=== PATIENT | female | born 1975 | race Caucasian/White ===

== ENCOUNTER → 2016-07-23 | Outpatient (CLI) | payer BC | LOC: MW.CHFP 15:46 | PROVIDERS: ATTEND Physician Assistant | DX: R10.11 Right upper quadrant pain (principal) | CPT/HCPCS: 36415; 80076 ==

== ENCOUNTER → 2016-08-02 | Outpatient (CLI) | payer BC ==
--- NOTE | 2016-08-06 03:13 | US ---
EXAMINATION: ] Quadrant ultrasound HISTORY: Pain COMPARISON: CT dated 03/14/2014 TECHNIQUE: Grayscale and color Doppler images obtained of the right upper quadrant. FINDINGS: The visualized pancreas appears normal. The liver is normal in contour and echogenicity wi thout a focal hepatic mass. Right kidney measures 10.9 cm sgod-fg-gore without evidence of hydroneph rosis. The common bile duct measures 4 mm. No images of the gallbladder provided, correlate for chol ecystectomy. IMPRESSION: 1. Unremarkable right upper quadrant ultrasound.
== END ==
LOC: MW.US 09:02
PROVIDERS: ATTEND Physician Assistant
DX: R10.11 Right upper quadrant pain (principal)
CPT/HCPCS: 76705; 76705-26

== ENCOUNTER 2016-08-14 18:35 | Emergency (ER) | payer BC ==
--- NOTE | 2016-08-14 18:47 | EDM.PDOC ---
ED HPI Trauma - General Chief Complaint: Upper Extremity Injury/Pain Stated Complaint: HIT RIGHT ARM Time Seen by Provider: 08/14/16 18:45 Source: Reports: Patient History Limitations: Reports: No limitations - History of Present Illness INITIAL COMMENTS - FREE TEXT/NARRATIVE: History of present illness: [41-year-old female presents with complaints of pain to right forearm. Patient indicates that she was ambulating and tripped falling forward and striking her right forearm abruptly on bar height countertop.] Review of systems: As per history of present illness and below otherwise all systems reviewed and negative. Past medical history: As per history of present illness and as reviewed below otherwise noncontributory. Surgical history: As per history of present illness and as reviewed below otherwise noncontributory. Social history: No reported history of drug or alcohol abuse. Family history: As per history of present illness and as reviewed below otherwise noncontributory. Physical exam: HEENT: Atraumatic, normocephalic, pupils reactive, negative for conjunctival pallor or scleral icterus, mucous membranes moist, throat clear, neck supple, nontender, trachea midline. Lungs: Clear to auscultation, breath sounds equal bilaterally, chest nontender. Heart: S1S2, regular, negative for clicks, rubs, or JVD. Abdomen: Soft, nondistended, nontender. Negative for masses or hepatosplenomegaly. Negative for costovertebral tenderness. Pelvis: Stable nontender. Genitourinary: Deferred. Rectal: Deferred. Extremities: Right arm with pain on abduction, as well as wrist movement. Negative for cords or calf pain. Neurovascular unremarkable. Neuro: Awake, alert, oriented. Cranial nerves II through XII unremarkable. Cerebellum unremarkable. Motor and sensory unremarkable throughout. Exam nonfocal. X-ray negative for fracture Diagnostics: [X-ray right forearm] Therapeutics: [] Impression: [Contusion] Plan: [Lubx-ons-paskknv pain medicine followup with primary care] Definitive disposition and diagnosis as appropriate pending reevaluation and review of above. Allergies/ADRs: Allergies codeine Allergy (Verified 08/14/16 18:48) Hives Home Medications: Ambulatory Orders Levothyroxine Sodium [Levothyroxine Sodium] 0.175 mg PO DAILY 12/04/13 [ Confirmed 08/14/16] Pantoprazole Sodium 40 mg PO DAILY 03/24/14 [Confirmed 08/14/16] Past Medical History Psychiatric History: Reports: Anxiety Oncologic (Cancer) History: Reports: Thyroid - Past Surgical History GI Surgical History: Reports: Bariatric procedure Endocrine Surgical History: Reports: Thyroidectomy Social & Family History - Tobacco Use Smoking Status *Q: Former Smoker Years of Tobacco use: 10 Used Tobacco, but Quit: Yes Month Tobacco Last Used: November Second Hand Smoke Exposure: No - Alcohol Use Days Per Week of Alcohol Use: 0 Number of Drinks Per Day: 0 Total Drinks Per Week: 0 - Recreational Drug Use Recreational Drug Use: No Drug Use in Last 12 Months: No Review of Systems - Review of Systems Review Of Systems: See Below (The history of present illness) Trauma Exam - Physical Exam Exam: See Below (See history of present illness) Course - Vital Signs Last Recorded V/S: Last Vital Signs Temp 37.1 C 08/14/16 18:51 Pulse 76 08/14/16 18:51 Resp 18 08/14/16 18:51 BP 132/63 08/14/16 18:51 Pulse Ox 100 08/14/16 18:51 - Orders/Labs/Meds Orders: Active Orders 24 hr Category Date Time Status Forearm 2V Rt [CR] Stat Exams 08/14/16 18:44 Taken Departure - Departure Time of Disposition: 19:56 Disposition: Home, Self-Care 01 Condition: good Clinical Impression: Right forearm pain Forms: ED Department Discharge Additional Instructions: The following information is given to patients seen in the emergency department who are being discharged to home. This information is to outline your options for follow-up care. We provide all patients seen in our emergency department with a follow-up referral. The need for follow-up, as well as the timing and circumstances, are variable depending upon the specifics of your emergency department visit. If you don't have a primary care physician on staff, we will provide you with a referral. We always advise you to contact your personal physician following an emergency department visit to inform them of the circumstance of the visit and for follow-up with them and/or the need for any referrals to a consulting specialist. The emergency department will also refer you to a specialist when appropriate. This referral assures that you have the opportunity for follow-up care with a specialist. All of these measure are taken in an effort to provide you with optimal care, which includes your follow-up. Under all circumstances we always encourage you to contact your private physician who remains a resource for coordinating your care. When calling for follow-up care, please make the office aware that this follow-up is from your recent emergency room visit. If for any reason you are refused follow-up, please contact the [facility] Emergency Department at and asked to speak to the emergency department charge nurse. Take jhvt-sqo-dppchqs pain medicine such as 800 mg of ibuprofen every 8 hours as needed for pain Alternate ice and heat for no more than 20 minutes at time Followup the primary care 1-2 days Return to ED as needed as discussed - My Orders Last 24 Hours: My Active Orders 08/14/16 18:44 Forearm 2V Rt [CR] Stat - Assessment/Plan Last 24 Hours: My Active Orders 08/14/16 18:44 Forearm 2V Rt [CR] Stat
[2016-08-14 20:27] VITALS: BP 112/58
--- NOTE | 2016-08-15 15:16 | CR ---
EXAM DATE: 08/14/16 PATIENT'S AGE: 41 Patient: AVEL COTO Facility: [place], [place] Site Site : 1975 Study: XRay Extremity FOREARM [id number]/29/2017 7:08:25 PM Ordering Physician: CECIL Final Report: INDICATION: INJURY, PAIN TECHNIQUE: Two views of the right forearm COMPARISON: None FINDINGS: Bones: No fractures or bone lesions. Joint spaces: Unremarkable. Soft tissues: Unremarkable. IMPRESSION: No acute bony abnormality. Dictated by Addy Varghese MD @ 08/14/2016 7:36:01 PM Dictated by: Addy Varghese MD @ 08/14/2016 19:36:07 (Electronic Signature) Report Signed by Proxy and Original Signed Document filed in the Medical Record. [email or web address]
== END 2016-08-14 20:25 | disposition home or self-care (01) ==
LOC: MW.ED 18:35
DX: S50.11XA Contusion of right forearm, initial encounter (principal); Z87.891 Personal history of nicotine dependence; Z88.5 Allergy status to narcotic agent; Z79.899 Other long term (current) drug therapy; F41.9 Anxiety disorder, unspecified; E89.0 Postprocedural hypothyroidism; Z98.84 Bariatric surgery status; W01.198A Fall on same level from slipping, tripping and stumbling with subsequent striking against other object, initial encounter
CPT/HCPCS: 73090-26-RT; 73090-RT; 99283

== ENCOUNTER 2017-03-07 07:14 | Day surgery (SDC) | payer BC ==
[~2017-03-07 07:14] MED LIST: Lactated Ringers 1,000 ML IV SCH
[2017-03-07] MEDS ORDERED: Lidocaine 2% 5 ML SDV ONE (07:31)
[2017-03-07] MEDS ORDERED: Propofol 200 MG/20 ML SDV ONE ×4 (07:31→09:39)
--- NOTE | 2017-03-07 08:14 | PCM.PREANE ---
Preanesthetic Assessment - Anesthesia/Transfusion/Family Hx Anesthesia History: Prior Anesthesia Without Reaction Other Type of Anesthesia Reaction Comment: DENIES ANY PROBLEMS WITH ANESTHESIA Family History of Anesthesia Reaction: No Transfusion History: No Prior Transfusion(s) Intubation History: Unknown - Review of Systems General: No Symptoms Pulmonary: No Symptoms Cardiovascular: No Symptoms Gastrointestinal: No Symptoms, Other (anemia of anknown origin) Neurological: No Symptoms Other: Reports: None - Physical Assessment O2 Sat by Pulse Oximetry: 100 Respiratory Rate: 16 Vital Signs: Last Vital Signs Temp 36.8 C 03/07/17 07:53 Pulse 68 03/07/17 07:53 Resp 16 03/07/17 07:53 BP 110/65 03/07/17 07:53 Pulse Ox 100 03/07/17 07:53 Height: 1.73 m Weight: 86.636 kg ASA Class: 2 Mental Status: Alert & Oriented x3 Airway Class: Mallampati = 2 Dentition: Reports: Normal Dentition, Surry(s) (upper and lower on back side) Thyro-Mental Finger Breadths: 3 Mouth Opening Finger Breadths: 3 ROM/Head Extension: Full Lungs: Clear to Auscultation, Normal Respiratory Effort Cardiovascular: Regular Rate, Regular Rhythm - Lab Values: Laboratory Last Values Urine HCG, Qual NEGATIVE (NEGATIVE) 03/07/17 07:19 - Allergies Allergies/Adverse Reactions: Allergies Allergy/AdvReac Type Severity Reaction Status Date / Time codeine Allergy Hives Verified 08/14/16 18:48 - Blood Blood Available: No - Anesthesia Plan Pre-Op Medication Ordered: None - Acknowledgements Anesthesia Type Planned: MAC Pt an Appropriate Candidate for the Planned Anesthesia: Yes Alternatives and Risks of Anesthesia Discussed w Pt/Guardian: Yes Pt/Guardian Understands and Agrees with Anesthesia Plan: Yes PreAnesthesia Questionnaire HEENT History: Reports: Other (See Below) Other HEENT History: wears glasses Gastrointestinal History: Reports: GERD, Hiatal Hernia 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: Musculoskeletal History: Reports: Fracture Other Musculoskeletal History: hx fx wrist Neurological History: Reports: Migraines Psychiatric History: Reports: Anxiety Endocrine/Metabolic History: Reports: Hypothyroidism, Other (See Below) (h/o pituitary tumor, small asymptomatic- no treatment so far (found while looking for cause of chronic headaches) Hematologic History: Reports: Anemia Oncologic (Cancer) History: Reports: Thyroid (h/o thyroid cancer) - Past Surgical History Head Surgeries/Procedures: Reports: None GI Surgical History: Reports: Bariatric Procedure, Cholecystectomy, Colonoscopy Other GI Surgeries/Procedures: hiatal hernia repair with gastric sleeve Endocrine Surgical History: Reports: Thyroidectomy - SUBSTANCE USE Smoking Status *Q: Former Smoker Second Hand Smoke Exposure: No Days Per Week of Alcohol Use: 0 Number of Drinks Per Day: 0 Total Drinks Per Week: 0 Recreational Drug Use History: No - HOME MEDS Home Medications: Home Meds Levothyroxine Sodium [Levothyroxine Sodium] 175 mcg PO ASDIRECTED 12/04/13 [ History] Pantoprazole Sodium 40 mg PO DAILY 03/24/14 [History] Acetaminophen [Tylenol Extra Strength] 1 - 2 tab PO ASDIRECTED PRN 03/04/17 [ History] Ascorbic Acid [Vitamin C] 100 mg PO DAILY 03/04/17 [History] Cholecalciferol (Vitamin D3) [Vitamin D3] 10,000 units PO WEEKLY 03/04/17 [ History] Cyanocobalamin (Vitamin B-12) [Vitamin B-12] 1,000 mcg PO DAILY 03/04/17 [ History] FA/Lycopene/Lut/MV,Ca,Iron,Min [Centrum] 1 tab CHEW DAILY 03/04/17 [History] Ferrous Sulfate [Iron] 325 mg PO BID 03/04/17 [History] Wheat Dextrin [Benefiber] 1 dose PO ASDIRECTED PRN 03/04/17 [History] - CURRENT (IN HOUSE) MEDS Current Meds: Current Medications Lactated Ringer's (Ringers, Lactated) 1,000 mls @ 125 mls/hr IV ASDIRECTED REED Last Admin: 03/07/17 07:55 Dose: 125 mls/hr Discontinued Medications Lidocaine (Xylocaine-Mpf 2%) Confirm Administered Dose 5 ml .ROUTE .STK-MED ONE Stop: 03/07/17 07:32 Propofol (Diprivan 20 Ml) Confirm Administered Dose 400 mg .ROUTE .STK-MED ONE Stop: 03/07/17 07:32
[2017-03-07] MEDS ORDERED: Benzocaine/Cetylpyridinium/Menthol Lozenge MUCMEM PRN (09:50)
--- NOTE | 2017-03-07 09:55 | PCM.OPNOTE ---
- General Post-Op/Procedure Note Date of Surgery/Procedure: 03/07/17 Operative Procedure(s): Esophagogastroduodenoscopy with biopsy. Colonoscopy with snare, rectosigmoid polypectomy and cold rectal polypectomy. Pre Op Diagnosis: Iron deficiency anemia. Post-Op Diagnosis: Moderate acute gastritis. Rectosigmoid polyp. Rectal polyp. Anesthesia Technique: MAC (ASA II) Primary Surgeon: Kwesi Wagner Logging Rafter Laborer: Jose Pierce Condition: Good Free Text/Narrative:: Dictation [id number] CPT CODE [id number]
--- NOTE | 2017-03-07 10:36 | OR ---
SURGEON: Kwesi Wagner M.D. DATE OF PROCEDURE: 03/07/2017 OPERATION PERFORMED: Esophagogastroduodenoscopy with biopsy. BLOW PIT HELPER: Dr. Pierce. ANESTHESIA: MAC. ASA CLASSIFICATION: II. PREOPERATIVE DIAGNOSIS: Iron-deficiency anemia, previous history of bariatric surgery. POSTOPERATIVE DIAGNOSIS: Moderate acute gastritis. DESCRIPTION OF PROCEDURE: The patient was taken to the endoscopy room, positioned on the endoscopy table in the supine position. Time-out was called for appropriate identification of the patient and procedure. Monitored anesthesia care was provided. The bite block was placed between the patient's teeth. The gastroscope was inserted through the bite block and advanced without difficulty through the esophagus and stomach into the duodenum where examination was carried out in a retrograde fashion. Duodenum shows no acute inflammatory changes. The stomach does show ksqd-gv-rhwulynz gastritis. Antral biopsies were obtained to look for the presence of Helicobacter pylori. The gastroscope was retroflexed to visualize the proximal stomach. No proximal lesions were identified. Specifically, no ulcers or polyps. The gastroscope was then straightened and slowly withdrawn. The GE junction was well defined and shows no acute inflammatory changes. The vocal cords were briefly visualized and showed no acute abnormalities. The gastroscope was then removed with the patient having tolerated this portion of the procedure well. Following colonoscopy, she was taken to recovery room in stable condition. GEORGE MATTHEWS /[id number]
--- NOTE | 2017-03-07 10:42 | OR ---
SURGEON: Kwesi Wagner M.D. DATE OF PROCEDURE: 03/07/2017 OPERATION PERFORMED: Colonoscopy with snare rectosigmoid polypectomy and cold rectal polypectomy. RECRUITING COORDINATOR: Dr. Pierce. ANESTHESIA: MAC. ASA CLASSIFICATION: II. PREOPERATIVE DIAGNOSIS: New onset iron-deficiency anemia. POSTOPERATIVE DIAGNOSIS: Colon polyps x2, one in the rectosigmoid and one in the rectum. DESCRIPTION OF PROCEDURE: With the patient having completed esophagogastroduodenoscopy, she was now positioned in the left lateral decubitus position. The colonoscope was inserted into the rectum and advanced with moderate difficulty to the cecum where the colonoscope was retroflexed to visualize the ascending colon from below. The colonoscope was then straightened and slowly withdrawn. The cecum, ascending colon, hepatic flexure, transverse colon, splenic flexure, descending colon, and sigmoid showed no tumors, polyps, diverticula, or angiodysplastic changes. One polyp was encountered at the rectosigmoid junction, removed with a combination of the snare electrocautery and cold biopsy forceps. A second polyp was encountered in the proximal rectum and removed with the cold biopsy forceps. This was sent for separate histologic analysis. The colonoscope was withdrawn to the distal rectum and retroflexed to visualize the anal orifice from above. No tumors or polyps were seen and there were no acute hemorrhoidal changes. The colonoscope was then straightened, the rectum aspirated, and the colonoscope removed. The patient tolerated the procedure well and was taken to recovery room in stable condition. GEORGE / CASSIE /[id number]
[2017-03-07 14:24] VITALS: BP 116/44
== END 2017-03-07 10:30 | disposition home or self-care (01) ==
LOC: MW.SDS 07:14
PROVIDERS: ATTEND Surgery
DX: K29.50 Unspecified chronic gastritis without bleeding (principal); D12.7 Benign neoplasm of rectosigmoid junction; D12.8 Benign neoplasm of rectum; D50.9 Iron deficiency anemia, unspecified; K21.9 Gastro-esophageal reflux disease without esophagitis; E89.0 Postprocedural hypothyroidism; G43.909 Migraine, unspecified, not intractable, without status migrainosus; Z85.850 Personal history of malignant neoplasm of thyroid; Z87.891 Personal history of nicotine dependence; Z88.5 Allergy status to narcotic agent; Z79.51 Long term (current) use of inhaled steroids; Z79.899 Other long term (current) drug therapy; Z98.84 Bariatric surgery status; Z98.890 Other specified postprocedural states
CPT/HCPCS: 43239; 45380; 45385; 81025; 88305; 88312; J7120; 00810; J2704

== ENCOUNTER 2017-03-11 06:26 | Observation (INO) | payer BC ==
[2017-03-10 09:18] LABS: CHLORIDE,CL 111 mmol/L (98-110); SODIUM,NA 142 mmol/L (136-146)
[~2017-03-11 06:26] MED LIST changes: -Lactated Ringers 1,000 ML IV SCH; +Sodium Chloride 0.9% 10 ML Syringe FLUSH PRN; +Sodium Chloride 0.9% 2.5 ML Syringe FLUSH PRN; +ceFAZolin 2 GM in Premix Bag 1 BAG IV ONE
[2017-03-11] MEDS: Lactated Ringers 1,000 ML IV SCH ×2 (06:45→13:13)
--- NOTE | 2017-03-11 06:59 | PCM.PREANE ---
Preanesthetic Assessment - Anesthesia/Transfusion/Family Hx Anesthesia History: Prior Anesthesia Without Reaction Other Type of Anesthesia Reaction Comment: DENIES ANY PROBLEMS WITH ANESTHESIA Family History of Anesthesia Reaction: No Transfusion History: No Prior Transfusion(s) Intubation History: Unknown - Review of Systems General: No Symptoms Pulmonary: No Symptoms Cardiovascular: No Symptoms Gastrointestinal: No Symptoms Neurological: No Symptoms Other: Reports: None - Physical Assessment Height: 1.73 m Weight: 86.636 kg ASA Class: 2 Mental Status: Alert & Oriented x3 Airway Class: Mallampati = 2 Dentition: Reports: Normal Dentition Thyro-Mental Finger Breadths: 3 Mouth Opening Finger Breadths: 3 ROM/Head Extension: Full Lungs: Clear to Auscultation, Normal Respiratory Effort Cardiovascular: Regular Rate, Regular Rhythm - Lab Values: Laboratory Last Values WBC 5.67 K/uL (4.0-11.0) 03/10/17 08:42 RBC 4.82 M/uL (4.30-5.90) 03/10/17 08:42 Hgb 12.6 g/dL (12.0-16.0) 03/10/17 08:42 Hct 40.0 % (36.0-46.0) 03/10/17 08:42 MCV 83.0 fL (80.0-98.0) 03/10/17 08:42 MCH 26.1 pg (27.0-32.0) L 03/10/17 08:42 MCHC 31.5 g/dL (31.0-37.0) 03/10/17 08:42 Plt Count 163 K/uL (150-400) 03/10/17 08:42 MPV 9.30 fL (7.40-12.00) 03/10/17 08:42 Nucleated RBC % 0.0 /100WBC 03/10/17 08:42 Nucleated RBCs # 0 K/uL 03/10/17 08:42 Sodium 142 mmol/L (136-146) 03/10/17 08:42 Potassium 3.8 mmol/L (3.5-5.1) 03/10/17 08:42 Chloride 111 mmol/L (98-110) H 03/10/17 08:42 Carbon Dioxide 27 mmol/L (21-31) 03/10/17 08:42 BUN 17 mg/dL (6.0-23.0) 03/10/17 08:42 Creatinine 0.7 mg/dL (0.6-1.5) 03/10/17 08:42 Est Cr Clr Drug Dosing 105.61 mL/min 03/10/17 08:42 Estimated GFR (MDRD) > 60.0 ml/min 03/10/17 08:42 Glucose 84 mg/dL (60-110) 03/10/17 08:42 Calcium 8.7 mg/dL (8.8-10.8) L 03/10/17 08:42 HCG, Quant < 1.2 mIU/mL 03/10/17 08:42 Blood Type O POSITIVE 03/10/17 08:42 Antibody Screen NEGATIVE 03/10/17 08:42 - Allergies Allergies/Adverse Reactions: Allergies Allergy/AdvReac Type Severity Reaction Status Date / Time codeine Allergy Hives Verified 08/14/16 18:48 - Blood Blood Available: No - Anesthesia Plan Pre-Op Medication Ordered: None - Acknowledgements Anesthesia Type Planned: General Anesthesia Pt an Appropriate Candidate for the Planned Anesthesia: Yes Alternatives and Risks of Anesthesia Discussed w Pt/Guardian: Yes Pt/Guardian Understands and Agrees with Anesthesia Plan: Yes PreAnesthesia Questionnaire HEENT History: Reports: Other (See Below) Other HEENT History: wears glasses Gastrointestinal History: Reports: GERD, Hiatal Hernia 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: Musculoskeletal History: Reports: Fracture Other Musculoskeletal History: hx fx wrist Neurological History: Reports: Migraines Psychiatric History: Reports: Anxiety Endocrine/Metabolic History: Reports: Hypothyroidism, Other (See Below) (h/o pituitary tumor, small asymptomatic- no treatment so far (found while looking for cause of chronic headaches) Hematologic History: Reports: Anemia Oncologic (Cancer) History: Reports: Thyroid (h/o thyroid cancer) - Past Surgical History Head Surgeries/Procedures: Reports: None GI Surgical History: Reports: Bariatric Procedure, Cholecystectomy, Colonoscopy Other GI Surgeries/Procedures: hiatal hernia repair with gastric sleeve Endocrine Surgical History: Reports: Thyroidectomy - SUBSTANCE USE Smoking Status *Q: Former Smoker Second Hand Smoke Exposure: No Days Per Week of Alcohol Use: 0 Number of Drinks Per Day: 0 Total Drinks Per Week: 0 Recreational Drug Use History: No - HOME MEDS Home Medications: Home Meds Levothyroxine Sodium [Levothyroxine Sodium] 175 mcg PO ASDIRECTED 12/04/13 [ History] Pantoprazole Sodium 40 mg PO DAILY 03/24/14 [History] Acetaminophen [Tylenol Extra Strength] 1 - 2 tab PO ASDIRECTED PRN 03/04/17 [ History] Ascorbic Acid [Vitamin C] 100 mg PO DAILY 03/04/17 [History] Cholecalciferol (Vitamin D3) [Vitamin D3] 10,000 units PO WEEKLY 03/04/17 [ History] Cyanocobalamin (Vitamin B-12) [Vitamin B-12] 1,000 mcg PO DAILY 03/04/17 [ History] FA/Lycopene/Lut/MV,Ca,Iron,Min [Centrum] 1 tab CHEW DAILY 03/04/17 [History] Ferrous Sulfate [Iron] 325 mg PO BID 03/04/17 [History] Wheat Dextrin [Benefiber] 1 dose PO ASDIRECTED PRN 03/04/17 [History] - CURRENT (IN HOUSE) MEDS Current Meds: Current Medications Lactated Ringer's (Ringers, Lactated) 1,000 mls @ 125 mls/hr IV ASDIRECTED REED Last Admin: 03/11/17 06:45 Dose: 125 mls/hr Sodium Chloride (Saline Flush) 10 ml FLUSH ASDIRECTED PRN PRN Reason: Keep Vein Open Sodium Chloride (Saline Flush) 2.5 ml FLUSH ASDIRECTED PRN PRN Reason: Keep Vein Open Discontinued Medications Cefazolin Sodium/Dextrose 2 gm (/ Premix) 50 mls @ 100 mls/hr IV ONETIME ONE Stop: 03/11/17 05:29
[2017-03-11] MEDS ORDERED: Rocuronium 10 MG/ML 10 ML Syringe ONE (07:21)
[2017-03-11] MEDS ORDERED: Midazolam 1 MG/ML 2 ML SDV ONE (07:21)
[2017-03-11] MEDS ORDERED: HYDROmorphone 2 MG/ML Syringe ONE (07:21)
[2017-03-11] MEDS ORDERED: Ondansetron 4 MG/2 ML SDV ONE (07:21)
[2017-03-11] MEDS ORDERED: Propofol 200 MG/20 ML SDV ONE (07:21)
[2017-03-11] MEDS ORDERED: Lidocaine 2% 5 ML SDV ONE (07:21)
[2017-03-11] MEDS ORDERED: fentaNYL 100 MCG/2 ML SDV ONE (07:23)
[2017-03-11] MEDS ORDERED: Fluorescein 5 ML Vial ONE (07:25)
[2017-03-11] MEDS ORDERED: Lidocaine 1% with EPINEPHrine 1:100,000 20 ML MDV ONE (07:51)
[2017-03-11] MEDS ORDERED: Bupivacaine 0.25% 10 ML SDV ONE (07:51)
[2017-03-11] MEDS ORDERED: Neomycin/Polymyxin B Bladder Irrigation 1 ML Amp ONE (07:52)
[2017-03-11] MEDS ORDERED: Scopolamine 1.5 MG Transdermal Patch ONE (07:54)
[2017-03-11] MEDS ORDERED: diphenhydrAMINE 50 MG/ML SDV ONE (07:54)
[2017-03-11] MEDS ORDERED: Dexamethasone 4 MG/ML 5 ML MDV ONE (07:54)
[2017-03-11] MEDS ORDERED: Furosemide 40 MG/4 ML VIAL ONE (09:19)
[2017-03-11] MEDS ORDERED: Octyl 2-Cyanoacrylate 1 Tube ONE (09:29)
[2017-03-11] MEDS ORDERED: Promethazine 25 MG/ML SDV IM PRN (10:02)
[2017-03-11] MEDS ORDERED: Acetaminophen/oxyCODONE 325-5 MG Tab PO PRN (10:02)
[2017-03-11] MEDS ORDERED: Naproxen 500 MG Tab PO PRN (10:02)
[2017-03-11] MEDS ORDERED: Morphine 4 MG/ML Syringe IVPUSH PRN (10:02)
[2017-03-11] MEDS ORDERED: Lactated Ringers 1,000 ML IV SCH (10:15)
--- NOTE | 2017-03-11 10:17 | PCM.OPNOTE ---
- General Post-Op/Procedure Note Date of Surgery/Procedure: 03/11/17 Operative Procedure(s): TVH/TOVT/cystoscopy Findings: 10 week uterus, boggy Normal appearing ovaries Bilateral patent ureters Pre Op Diagnosis: Menorrhagia. Stress urinary incontinence Post-Op Diagnosis: Same Anesthesia Technique: General ET Tube Primary Surgeon: Karolina Yanez Rn Concurrent Review: Valeria Ariza Pathology: uterus Fluid Replacement, Intraop: 3,300 EBL in mLs: 600 Complications: none known Condition: Good Free Text/Narrative:: Dictation [id number]
[2017-03-11] MEDS: fentaNYL 100 MCG/2 ML SDV IVPUSH PRN ×2 (10:30→10:35)
--- NOTE | 2017-03-11 11:28 | PCM.POSTAN ---
POST ANESTHESIA ASSESSMENT - MENTAL STATUS Mental Status: Alert, Oriented - RESPIRATORY Respiratory Status: Respiratory Rate WNL, Airway Patent, O2 Saturation Stable - CARDIOVASCULAR CV Status: Pulse Rate WNL, Blood Pressure Stable - GASTROINTESTINAL GI Status: No Symptoms - PAIN Pain Score: 5 - POST OP HYDRATION Hydration Status: Adequate & Stable - OBSERVATIONS Free Text/Narrative:: no anesthesia problems
[2017-03-11] MEDS: Morphine 2 MG/ML Syringe IVPUSH PRN ×4 (11:33→20:09)
[2017-03-11] MEDS: Ondansetron 4 MG/2 ML SDV IVPUSH PRN (13:07)
[2017-03-11] MEDS: diphenhydrAMINE 25 MG Cap PO PRN ×2 (15:30→21:27)
--- NOTE | 2017-03-11 15:45 | OR ---
SURGEON: Karolina Yanez M.D. DATE OF PROCEDURE: 03/11/2017 PREOPERATIVE DIAGNOSES: 1. Menorrhagia. 2. Stress urinary incontinence. POSTOPERATIVE DIAGNOSES: 1. Menorrhagia. 2. Stress urinary incontinence. PROCEDURE: 1. Total vaginal hysterectomy. 2. Transobturator vaginal taping. Mid urethral sling. 3. Cystoscopy. WARRANTY MANAGER: Valeria Ariza M.D. ESTIMATED BLOOD LOSS: 600 mL. ANESTHESIA: General endotracheal anesthesia. FLUIDS: 3300 mL crystalloid. COMPLICATIONS: None. FINDINGS: Boggy 10-week uterus, bilateral patent ureters. DISPOSITION: The patient to PACU, stable. SPECIMENS: To pathology. PROCEDURE DETAILS: Calista is a 41-year-old female, who has ongoing difficulties with menorrhagia to the point of bleeding to anemia. She would like to proceed with definitive surgical intervention. She also has stress urinary incontinence. Cystometry indicates that she has a normal PVR, leaks with Valsalva, and has urethral hypermobility. She is a candidate for mid urethral sling and would like to proceed in this manner. She is also a reasonable candidate for vaginal hysterectomy. Risks of the procedure have been discussed with her and proper consent was obtained. The patient was taken to the operating room, where she underwent general endotracheal anesthesia. Placed in modified dorsal lithotomy position, was prepped and draped in the usual sterile fashion. SCDs to lower extremities. Rosales to gravity. Received Ancef prophylactically. Time-out was performed. A weighted speculum, anterior Leon, sidewall retractors were gently placed in the vagina. Cervix was grasped with Manuela clamp. Cervix was circumscribed with Bovie cautery, anterior and posteriorly. The overlying mucosa was dissected away from underlying mucosa. Posterior mucosa was tented downward in the midline, entered sharply. Anterior mucosa was further dissected. The patient is extremely vascular; at every point of dissection, there was oozing and a great deal of more than average bleeding. Care was taken at this point to secure the uterosacral ligament on either side with Augustin clamps, transected, and suture ligated with 2-0 Vicryl. I could more easily visualize the anterior peritoneum at this juncture. The peritoneum was tented upward and entered sharply. I was able to palpate the anterior cul-de-sac, it had been entered nicely and anterior [place] was placed to mobilize the bladder away from the operative field. In serial fashion, remainder of the pedicles were able to be secured including the cardinal ligament, the base of broad ligament, medial aspect of broad ligament, upper portion of broad ligament, and the kjdtl-ihaf-nziwgrl pedicle on either side. These were secured with Augustin clamp, transected, and suture ligated. The area of oozing along the right woclv-drcu-orbxfwv pedicle was able to be secured with a tie on a pass. At this juncture, given the amount of vascularity and more than average bleeding with this procedure, it was felt to be prudent to not remove the normal appearing tubes and ovaries, particularly the tubes, as we had discussed, being able to prophylactically if easily accessible and prudent. The ovaries are visualized and appeared normal. The pedicles were now closely inspected. The uterosacral ligament on either side is plicated to the vaginal apex on either side. There was still oozing along the right uterosacral ligament. This was secured with a aschqz-sg-kfksq suture. Hemostasis thereafter was more evident. Pedicles were once again inspected and found to be hemostatic. The cuff was now closed using 0 Vicryl in continuous running locked fashion. The area of oozing right along the mid cuff is plicated with a thehoz-hw-slbfb 2 - 0 Vicryl. Hemostasis was thereafter evident. The cystoscopy is now performed. The balloon is deflated and catheters removed. The cystoscope was introduced and the patient had received IV fluorescein and Lasix. The dome of the bladder was able to be visualized, found to be intact. The trigone was inspected. The right ureteral orifice, followed by the left ureteral orifice was able to be visualized. Fluorescein dyed urine seen streaming from them, helping to ensure ureteral patency. The bladder was now drained. The scope has been removed. Attention was turned to performing the transobturator vaginal taping, using the [employer] system. The patient's adductor longus muscle tendon on either side was able to be palpated directly in line with the clitoral miller. The pubic rami notch was able to be palpated and marked with a marking pen. This region is now infiltrated with a dilute local anesthetic. Please see nurse's notes for total amount dispensed during the procedure. I also provided local behind the pubic bone, directly below the urethral meatus along the anterior vaginal mucosa. This region was also infiltrated with local anesthetic as well as the periurethral spaces. The 11 blade scalpel was used to create groin incisions on either side. Just below the urethral meatus, the anterior vaginal mucosa was grasped and a sagittal anterior vaginal mucosa incision was made with a 15 blade scalpel. The periurethral space on either side were now sharply and bluntly dissected until the medial aspect of the pubic ramus was able to be palpated on either side. Now the adequate dissection had occurred. The Obtryx introducer is placed through the left groin incision. The introducer is now periphery to the transobturator membrane and muscle. Rotated this gently behind the pubic bone, exiting through the vaginal incision. The tape was attached to the introducer and removed through the port of entry. The introducer was now removed from the tape. In a similar fashion, this was performed on the patient's right side. There had been a small hole created in the right side of the vaginal mucosa, this was repaired using 3-0 Vicryl. The index finger was placed in the right periurethral space, it has been dissected. The Obtryx introducer is placed through the right groin incision at a 45-degree angle for the handle, perforating the transobturator membrane and muscle, rotating behind the pubic bone and exiting through the vaginal incision. Tape was attached and removed through the port of entry. The midline was able to be observed with a tag in place. The bladder is now back filled with 240 mL of saline. The Valsalva was performed until the tape tightening reveals no further leakage of the saline that was present. Once the tape was felt to be satisfactorily tightened, the midline tag on the tape was able to be cut and removed. The overlying sheath is now removed from the underlying mesh on either side, with gently tenting the tape downward in the midline. The edges of the tape were now trimmed at the groin incision. The groin incisions were repaired using Dermabond and the vaginal mucosal incisions were repaired using 3-0 Vicryl in continuous locked fashion. The cuff in the midline incision was once again inspected, found to be hemostatic. Rosales catheter is replaced. The patient had tolerated the procedure well overall. Sponge and needle count was correct x2. The patient will go to PACU in stable condition. Specimens to pathology. LUIGI / CASSIE /[id number] MTDD
--- NOTE | 2017-03-11 17:45 | PCM.SN ---
- Free Text/Narrative Note: Patient is doing well overall. pain is controlled. She is sitting up in bed, eating supper. Nausea well controlled. Itching improved with benadryl. Explained procedure and findings. Questions answered. Continue postoperative cares. Stable overall.
[2017-03-11] MEDS: Acetaminophen/oxyCODONE 325-5 MG Tab PO PRN (18:23)
[2017-03-12] MEDS: Acetaminophen/oxyCODONE 325-5 MG Tab PO PRN ×2 (01:01→05:50)
[2017-03-12] MEDS: Morphine 2 MG/ML Syringe IVPUSH PRN ×2 (02:45→07:53)
[2017-03-12 05:28] LABS: CHLORIDE,CL 110 mmol/L (98-110); SODIUM,NA 140 mmol/L (136-146)
[2017-03-12] MEDS: diphenhydrAMINE 25 MG Cap PO PRN (05:50)
[2017-03-12] MEDS: Lactated Ringers 1,000 ML IV SCH (06:04)
[2017-03-12] MEDS: Ondansetron 4 MG/2 ML SDV IVPUSH PRN (06:04)
--- NOTE | 2017-03-12 08:59 | PCM.SURGPN ---
- General Info Date of Service: 03/12/17 POD#: 1 Functional Status: Reports: Pain Controlled, Tolerating Diet, Ambulating - Review of Systems General: Denies: Fever, Weakness Pulmonary: Denies: Shortness of Breath Cardiovascular: Denies: Chest Pain, Palpitations, Lightheadedness Gastrointestinal: Reports: Abdominal Pain (cramping low abdomen, pain meds help alleviate), Flatus. Denies: Nausea Neurological: Denies: Confusion, Dizziness, Headache Psychiatric: Reports: No Symptoms - Patient Data Vitals - Most Recent: Last Vital Signs Temp 36.8 C 03/12/17 08:00 Pulse 62 03/12/17 08:00 Resp 22 H 03/12/17 08:00 BP 93/55 L 03/12/17 08:00 Pulse Ox 99 03/12/17 08:00 Weight - Most Recent: 86.6 kg I&O - Last 24 Hours: Intake & Output 03/11/17 03/12/17 03/12/17 22:59 06:59 14:59 Intake Total 350 1914 380 Output Total 910 1680 Balance -560 234 380 Lab Results Last 24 Hrs: Laboratory Results - last 24 hr 03/12/17 03/12/17 Range/Units 04:38 04:38 WBC 10.63 (4.0-11.0) K/uL RBC 3.76 L (4.30-5.90) M/uL Hgb 9.8 L (12.0-16.0) g/dL Hct 31.0 L (36.0-46.0) % MCV 82.4 (80.0-98.0) fL MCH 26.1 L (27.0-32.0) pg MCHC 31.6 (31.0-37.0) g/dL Plt Count 155 (150-400) K/uL MPV 9.30 (7.40-12.00) fL Neut % (Auto) 79.6 (48.0-80.0) % Lymph % (Auto) 12.5 L (16.0-40.0) % Tripp % (Auto) 7.7 (0.0-15.0) % Eos % (Auto) 0.1 (0.0-7.0) % Baso % (Auto) 0.1 (0.0-1.5) % Neut # (Auto) 8.5 H (1.4-5.7) K/uL Lymph # (Auto) 1.3 (0.6-2.4) K/uL Tripp # (Auto) 0.8 (0.0-0.8) K/uL Eos # (Auto) 0.0 (0.0-0.7) K/uL Baso # (Auto) 0.0 (0.0-0.1) K/uL Nucleated RBC % 0.0 /100WBC Nucleated RBCs # 0 K/uL Sodium 140 (136-146) mmol/L Potassium 3.9 (3.5-5.1) mmol/L Chloride 110 (98-110) mmol/L Carbon Dioxide 26 (21-31) mmol/L BUN 11 (6.0-23.0) mg/dL Creatinine 0.7 (0.6-1.5) mg/dL Est Cr Clr Drug Dosing 106.03 mL/min Estimated GFR (MDRD) > 60.0 ml/min Glucose 114 H (60-110) mg/dL Calcium 8.1 L (8.8-10.8) mg/dL Med Orders - Current: Current Medications Diphenhydramine HCl (Benadryl) 25 mg PO Q6H PRN PRN Reason: Itching Last Admin: 03/12/17 05:50 Dose: 25 mg Fentanyl (Sublimaze) 50 mcg IVPUSH .Q5MIN PRN PRN Reason: Pain Last Admin: 03/11/17 10:35 Dose: 50 mcg Lactated Ringer's (Ringers, Lactated) 1,000 mls @ 125 mls/hr IV ASDIRECTED [facility] Last Admin: 03/12/17 06:04 Dose: 125 mls/hr Lactated Ringer's (Ringers, Lactated) 1,000 mls @ 125 mls/hr IV ASDIRECTED [facility] Last Admin: 03/11/17 21:31 Dose: 125 mls/hr Morphine Sulfate (Morphine) 2 mg IVPUSH Q2H PRN PRN Reason: Pain (severe 7-10) Last Admin: 03/12/17 07:53 Dose: 2 mg Morphine Sulfate (Morphine) 4 mg IVPUSH Q2H PRN PRN Reason: Pain (severe 7-10) Last Admin: 03/11/17 22:41 Dose: 4 mg Naproxen (Naprosyn) 500 mg PO Q12H PRN PRN Reason: Pain Ondansetron HCl (Zofran) 4 mg IVPUSH Q6H PRN PRN Reason: Nausea/Vomiting Last Admin: 03/12/17 06:04 Dose: 4 mg Oxycodone/Acetaminophen (Percocet 325-5 Mg) 1 tab PO Q4H PRN PRN Reason: Pain (moderate 4-6) Last Admin: 03/11/17 13:07 Dose: 1 tab Oxycodone/Acetaminophen (Percocet 325-5 Mg) 2 tab PO Q4H PRN PRN Reason: Pain (moderate 4-6) Last Admin: 03/12/17 05:50 Dose: 2 tab Promethazine HCl (Phenergan) 25 mg IM Q6H PRN PRN Reason: Nausea/Vomiting Sodium Chloride (Saline Flush) 10 ml FLUSH ASDIRECTED PRN PRN Reason: Keep Vein Open Sodium Chloride (Saline Flush) 2.5 ml FLUSH ASDIRECTED PRN PRN Reason: Keep Vein Open Discontinued Medications Bupivacaine HCl (Sensorcaine-Mpf 0.25%) Confirm Administered Dose 10 ml .ROUTE .STK-MED ONE Stop: 03/11/17 07:52 Dexamethasone (Dexamethasone) Confirm Administered Dose 20 mg .ROUTE .STK-MED ONE Stop: 03/11/17 07:55 Diphenhydramine HCl (Benadryl) Confirm Administered Dose 50 mg .ROUTE .STK-MED ONE Stop: 03/11/17 07:55 Fentanyl (Sublimaze) Confirm Administered Dose 100 mcg .ROUTE .STK-MED ONE Stop: 03/11/17 07:24 Fluorescein Sodium (Ak-Fluor) Confirm Administered Dose 5 ml .ROUTE .STK-MED ONE Stop: 03/11/17 07:26 Furosemide (Lasix) Confirm Administered Dose 40 mg .ROUTE .STK-MED ONE Stop: 03/11/17 09:20 Hydromorphone HCl (Dilaudid) Confirm Administered Dose 2 mg .ROUTE .STK-MED ONE Stop: 03/11/17 07:22 Cefazolin Sodium/Dextrose 2 gm (/ Premix) 50 mls @ 100 mls/hr IV ONETIME ONE Stop: 03/11/17 05:29 Last Admin: 03/11/17 11:39 Dose: Not Given Lidocaine (Xylocaine-Mpf 2%) Confirm Administered Dose 5 ml .ROUTE .STK-MED ONE Stop: 03/11/17 07:22 Lidocaine/Epinephrine (Xylocaine 1% With Epinephrine 1:100,000) Confirm Administered Dose 20 ml .ROUTE .STK-MED ONE Stop: 03/11/17 07:52 Midazolam HCl (Versed 1 Mg/Ml) Confirm Administered Dose 2 mg .ROUTE .STK-MED ONE Stop: 03/11/17 07:22 Neomycin/Polymyxin (Neosporin Gu Irrigant) Confirm Administered Dose 1 ml .ROUTE .STK-MED ONE Stop: 03/11/17 07:53 Octyl Cyanoacrylate (Dermabond Advance) Confirm Administered Dose 1 applic .ROUTE .STK-MED ONE Stop: 03/11/17 09:30 Ondansetron HCl (Zofran) Confirm Administered Dose 4 mg .ROUTE .STK-MED ONE Stop: 03/11/17 07:22 Propofol (Diprivan 20 Ml) Confirm Administered Dose 200 mg .ROUTE .STK-MED ONE Stop: 03/11/17 07:22 Rocuronium [place] (Zemuron) Confirm Administered Dose 100 mg .ROUTE .STK-MED ONE Stop: 03/11/17 07:22 Scopolamine (Transderm-Scop) Confirm Administered Dose 1.5 mg .ROUTE .STK-MED ONE Stop: 03/11/17 07:55 - Exam General: Alert, Oriented Lungs: Normal Respiratory Effort Cardiovascular: Regular Rate, Regular Rhythm GI/Abdominal Exam: Soft, Non-Tender Extremities: No Pedal Edema Skin: Warm, Dry, Intact Psy/Mental Status: Alert, Normal Affect - Problem List & Annotations (1) Menorrhagia SNOMED Code(s): 933899987 Code(s): N92.0 - EXCESSIVE AND FREQUENT MENSTRUATION WITH REGULAR CYCLE Status: Acute Current Visit: Yes - Problem List Review Problem List Initiated/Reviewed/Updated: Yes - My Orders Last 24 Hours: Active Orders 24 hr Category Date Time Status Patient Status [ADT] Routine ADT 03/11/17 10:02 Active Antiembolic Devices [RC] PER UNIT ROUTINE Care 03/11/17 10:02 Active Notify Provider Intake and Out [RC] ASDIRECTED Care 03/11/17 10:02 Active Notify Provider Vital Signs [RC] ASDIRECTED Care 03/11/17 10:02 Active Oxygen Therapy [RC] ASDIRECTED Care 03/11/17 10:02 Active RT Incentive Spirometry [RC] Q2HWA Care 03/11/17 10:02 Active Ready for Discharge [RC] PER UNIT ROUTINE Care 03/12/17 08:53 Ordered Remove Urinary Catheter [Urinary Catheter Removal] [RC] Care 03/11/17 17:43 Active Per Unit Routine Up With Assistance [RC] PER UNIT ROUTINE Care 03/11/17 10:02 Active Up ad Annamarie [RC] PER UNIT ROUTINE Care 03/11/17 10:02 Active Urinary Catheter Removal [RC] Per Unit Routine Care 03/11/17 10:02 Inactive Vital Signs [RC] PER UNIT ROUTINE Care 03/11/17 10:02 Active Regular Diet [DIET] Diet 03/11/17 Lunch Active Acetaminophen/oxyCODONE [Percocet 325-5 MG] Med 03/11/17 10:02 Active 1 tab PO Q4H PRN Acetaminophen/oxyCODONE [Percocet 325-5 MG] Med 03/11/17 10:02 Active 2 tab PO Q4H PRN Lactated Ringers [Ringers, Lactated] 1,000 ml Med 03/11/17 10:15 Active IV ASDIRECTED Morphine Med 03/11/17 10:02 Active 2 mg IVPUSH Q2H PRN Morphine Med 03/11/17 10:02 Active 4 mg IVPUSH Q2H PRN Naproxen [Naprosyn] Med 03/11/17 10:02 Active 500 mg PO Q12H PRN Ondansetron [Zofran] Med 03/11/17 10:02 Active 4 mg IVPUSH Q6H PRN Promethazine [Phenergan] Med 03/11/17 10:02 Active 25 mg IM Q6H PRN diphenhydrAMINE [Benadryl] Med 03/11/17 15:23 Active 25 mg PO Q6H PRN fentaNYL [Sublimaze] Med 03/11/17 08:37 Active 50 mcg IVPUSH .Q5MIN PRN Peripheral IV Discontinue [OM.PC] Routine Oth 03/11/17 10:02 Ordered Sequential Compression Device [OM.PC] Per Unit Routine Oth 03/11/17 10:02 Ordered Resuscitation Status Routine Resus Stat 03/11/17 10:02 Ordered Medication Orders Diphenhydramine HCl (Benadryl) 25 mg PO Q6H PRN PRN Reason: Itching Last Admin: 03/12/17 05:50 Dose: 25 mg Admin: 03/11/17 21:27 Dose: 25 mg Admin: 03/11/17 15:30 Dose: 25 mg Fentanyl (Sublimaze) 50 mcg IVPUSH .Q5MIN PRN PRN Reason: Pain Last Admin: 03/11/17 10:35 Dose: 50 mcg Admin: 03/11/17 10:30 Dose: 50 mcg Lactated Ringer's (Ringers, Lactated) 1,000 mls @ 125 mls/hr IV ASDIRECTED [facility] Last Admin: 03/12/17 06:04 Dose: 125 mls/hr Infusion: 03/11/17 21:13 Dose: 125 mls/hr Admin: 03/11/17 13:13 Dose: 125 mls/hr Infusion: 03/11/17 13:13 Dose: 125 mls/hr Admin: 03/11/17 06:45 Dose: 125 mls/hr Lactated Ringer's (Ringers, Lactated) 1,000 mls @ 125 mls/hr IV ASDIRECTED [facility] Last Admin: 03/11/17 21:31 Dose: 125 mls/hr Morphine Sulfate (Morphine) 2 mg IVPUSH Q2H PRN PRN Reason: Pain (severe 7-10) Last Admin: 03/12/17 07:53 Dose: 2 mg Admin: 03/12/17 02:45 Dose: 2 mg Admin: 03/11/17 20:09 Dose: 2 mg Admin: 03/11/17 16:17 Dose: 2 mg Admin: 03/11/17 13:51 Dose: 2 mg Admin: 03/11/17 11:33 Dose: 2 mg Morphine Sulfate (Morphine) 4 mg IVPUSH Q2H PRN PRN Reason: Pain (severe 7-10) Last Admin: 03/11/17 22:41 Dose: 4 mg Naproxen (Naprosyn) 500 mg PO Q12H PRN PRN Reason: Pain Ondansetron HCl (Zofran) 4 mg IVPUSH Q6H PRN PRN Reason: Nausea/Vomiting Last Admin: 03/12/17 06:04 Dose: 4 mg Admin: 03/11/17 13:07 Dose: 4 mg Oxycodone/Acetaminophen (Percocet 325-5 Mg) 1 tab PO Q4H PRN PRN Reason: Pain (moderate 4-6) Last Admin: 03/11/17 13:07 Dose: 1 tab Oxycodone/Acetaminophen (Percocet 325-5 Mg) 2 tab PO Q4H PRN PRN Reason: Pain (moderate 4-6) Last Admin: 03/12/17 05:50 Dose: 2 tab Admin: 03/12/17 01:01 Dose: 2 tab Admin: 03/11/17 18:23 Dose: 2 tab Promethazine HCl (Phenergan) 25 mg IM Q6H PRN PRN Reason: Nausea/Vomiting Sodium Chloride (Saline Flush) 10 ml FLUSH ASDIRECTED PRN PRN Reason: Keep Vein Open Sodium Chloride (Saline Flush) 2.5 ml FLUSH ASDIRECTED PRN PRN Reason: Keep Vein Open - Assessment Assessment (Free Text/Narrative):: POD 1 status post TVH/TOVT/cystoscopy - Plan Plan (Free Text/Narrative):: Doing well overall, VS are stable, labs are reassuring. Has been able to void. Will allow discharge to home today. Infection and bleeding warnings reviewed. Follow up at [facility] 2 and 6 weeks. Discharge instructions reviewed.
[2017-03-12] MEDS ORDERED: Ketorolac 30 MG/ML SDV IVPUSH ONE (09:01)
[2017-03-12 11:36] VITALS: BP 90/48
== END 2017-03-12 11:00 | disposition home or self-care (01) ==
LOC: MW.SDS 06:26 → MW.MS 10:02
PROVIDERS: ADMIT Obstetrics & Gynecology; ATTEND Obstetrics & Gynecology
DX: D25.1 Intramural leiomyoma of uterus (principal); N39.3 Stress incontinence (female) (male); E89.0 Postprocedural hypothyroidism; G43.909 Migraine, unspecified, not intractable, without status migrainosus; F41.9 Anxiety disorder, unspecified; K21.9 Gastro-esophageal reflux disease without esophagitis; Z85.850 Personal history of malignant neoplasm of thyroid; Z87.891 Personal history of nicotine dependence; Z79.899 Other long term (current) drug therapy; Z90.49 Acquired absence of other specified parts of digestive tract; Z98.84 Bariatric surgery status; Z98.890 Other specified postprocedural states; Z88.5 Allergy status to narcotic agent
CPT/HCPCS: 36415; 57288; 58260; 80048; 84702; 85025; 85027; 86850; 86900; 86901; 88307; 96374; A9270; C1771; G0378; J1100; J1170; J1200; J1885; J1940; J2250; J2270; J2405; J3010; J7120; 00944; J2704

== ENCOUNTER 2017-11-05 12:26 | Day surgery (SDC) | payer BC ==
[~2017-11-05 12:26] MED LIST changes: +Acetaminophen/HYDROcodone 325-5 MG Tab PO PRN; +Lactated Ringers 1,000 ML IV SCH; -Sodium Chloride 0.9% 10 ML Syringe FLUSH PRN; -Sodium Chloride 0.9% 2.5 ML Syringe FLUSH PRN; -ceFAZolin 2 GM in Premix Bag 1 BAG IV ONE; +ceFAZolin 2 GM in Premix Bag 1 BAG IV SCH
--- NOTE | 2017-11-05 13:32 | PCM.OPNOTE ---
- General Post-Op/Procedure Note Date of Surgery/Procedure: 11/05/17 Operative Procedure(s): R knee arthroscopy with chondroplasty med/lateral femoral condyle and trochlear groove Post-Op Diagnosis: R knee DJD Anesthesia Technique: General LMA Primary Surgeon: Elsa Montalvo EBEliseo in mLs: 5 Condition: Good Free Text/Narrative:: #20 min [id number]
[2017-11-05] MEDS ORDERED: Scopolamine 1.5 MG Transdermal Patch TRDERM PRN (13:56)
[2017-11-05] MEDS ORDERED: Lidocaine 1% 20 ML MDV ONE (14:11)
--- NOTE | 2017-11-05 14:14 | PCM.PREANE ---
Preanesthetic Assessment - Anesthesia/Transfusion/Family Hx Anesthesia History: Prior Anesthesia Without Reaction Other Type of Anesthesia Reaction Comment: requests to have scope patch Family History of Anesthesia Reaction: No Transfusion History: No Prior Transfusion(s) Intubation History: Unknown - Review of Systems General: No Symptoms Pulmonary: No Symptoms Cardiovascular: No Symptoms Gastrointestinal: No Symptoms Neurological: No Symptoms Other: Reports: None - Physical Assessment NPO Status Date: 11/04/17 NPO Status Time: 21:00 O2 Sat by Pulse Oximetry: 100 Respiratory Rate: 16 Vital Signs: Last Vital Signs Temp 36.6 C 11/05/17 13:10 Pulse 69 11/05/17 13:10 Resp 16 11/05/17 13:10 BP 117/77 11/05/17 13:10 Pulse Ox 100 11/05/17 13:10 Height: 1.74 m Weight: 87.09 kg ASA Class: 2 Mental Status: Alert & Oriented x3 Airway Class: Mallampati = 2 Dentition: Reports: Normal Dentition Thyro-Mental Finger Breadths: 3 Mouth Opening Finger Breadths: 3 ROM/Head Extension: Full Lungs: Clear to Auscultation, Normal Respiratory Effort Cardiovascular: Regular Rate, Regular Rhythm - Allergies Allergies/Adverse Reactions: Allergies Allergy/AdvReac Type Severity Reaction Status Date / Time codeine Allergy Hives Verified 10/31/17 08:40 - Blood Blood Available: No - Anesthesia Plan Pre-Op Medication Ordered: None - Acknowledgements Anesthesia Type Planned: General Anesthesia Pt an Appropriate Candidate for the Planned Anesthesia: Yes Alternatives and Risks of Anesthesia Discussed w Pt/Guardian: Yes Pt/Guardian Understands and Agrees with Anesthesia Plan: Yes PreAnesthesia Questionnaire HEENT History: Reports: Other (See Below) Other HEENT History: wears glasses Gastrointestinal History: Reports: Colon Polyp, GERD, Hiatal Hernia Genitourinary History: Reports: None 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: Musculoskeletal History: Reports: Fracture Other Musculoskeletal History: hx fx wrist (closed reduction), presently left knee pain Neurological History: Reports: Migraines Psychiatric History: Endocrine/Metabolic History: Reports: Hypothyroidism, Other (See Below) Hematologic History: Reports: Anemia Oncologic (Cancer) History: Reports: 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) - Past Surgical History Head Surgeries/Procedures: Reports: None GI Surgical History: Reports: Bariatric Procedure, Cholecystectomy, Colonoscopy Other GI Surgeries/Procedures: hiatal hernia repair with gastric sleeve Female Surgical History: Reports: Hysterectomy Endocrine Surgical History: Reports: Thyroidectomy - SUBSTANCE USE Smoking Status *Q: Former Smoker (quit about ) Recreational Drug Use History: No - HOME MEDS Home Medications: Home Meds Levothyroxine Sodium 150 mcg PO SUWESA@0730 12/04/13 [History] Pantoprazole Sodium 40 mg PO ASDIRECTED PRN 03/24/14 [History] Acetaminophen [Tylenol Extra Strength] 1 - 2 tab PO ASDIRECTED PRN 03/04/17 [ History] Ascorbic Acid [Vitamin C] 100 mg PO DAILY 03/04/17 [History] Cholecalciferol (Vitamin D3) [Vitamin D3] 50,000 units PO ASDIRECTED 03/04/17 [ History] Cyanocobalamin (Vitamin B-12) [Vitamin B-12] 1,000 mcg PO DAILY 03/04/17 [ History] FA/Lycopene/Lut/MV,Ca,Iron,Min [Centrum] 2 tab CHEW BID 03/04/17 [History] Ferrous Sulfate [Iron] 325 mg PO BID 03/04/17 [History] Wheat Dextrin [Benefiber] 1 dose PO ASDIRECTED PRN 03/04/17 [History] Levothyroxine Sodium [Synthroid] 175 mcg PO MOTUTHFR@0730 03/11/17 [History] Calcitriol 0.5 mg PO DAILY 10/31/17 [History] Phentermine HCl 15 mg PO DAILY 10/31/17 [History] Topiramate 50 mg PO DAILY 10/31/17 [History] metroNIDAZOLE [Flagyl] 500 mg PO BID 11/04/17 [History] - CURRENT (IN HOUSE) MEDS Current Meds: Current Medications Hydrocodone Bitart/Acetaminophen ([place] 325-5 Mg) 1 - 2 tab PO Q4H PRN PRN Reason: Pain Cefazolin Sodium/Dextrose 2 gm (/ Premix) 50 mls @ 100 mls/hr IV ONCALL REED Lactated Ringer's (Ringers, Lactated) 1,000 mls @ 100 mls/hr IV ASDIRECTED [facility] Last Admin: 11/05/17 13:42 Dose: 100 mls/hr Scopolamine (Transderm-Scop) 1.5 mg TRDERM Q72H PRN PRN Reason: Nausea
[2017-11-05] MEDS ORDERED: Propofol 200 MG/20 ML SDV ONE (14:38)
[2017-11-05] MEDS ORDERED: Midazolam 1 MG/ML 2 ML SDV ONE (14:38)
[2017-11-05] MEDS ORDERED: Ondansetron 4 MG/2 ML SDV ONE (14:38)
[2017-11-05] MEDS ORDERED: fentaNYL 250 MCG/5 ML SDV ONE (14:38)
[2017-11-05] MEDS ORDERED: Lidocaine 2% 5 ML SDV ONE (14:38)
[2017-11-05] MEDS ORDERED: ceFAZolin 1 GM Vial ONE (15:13)
[2017-11-05] MEDS ORDERED: Sodium Chloride 0.9% 20 ML ONE (15:13)
[2017-11-05] MEDS ORDERED: Glycopyrrolate 0.2 MG/ML SDV ONE (15:16)
[2017-11-05] MEDS ORDERED: Dexamethasone 4 MG/ML 5 ML MDV ONE (15:31)
[2017-11-05] MEDS: fentaNYL 100 MCG/2 ML SDV IVPUSH PRN ×2 (16:13→16:19)
--- NOTE | 2017-11-05 16:45 | OR ---
SURGEON: Elsa Montalvo MD DATE OF PROCEDURE: 11/05/2017 PREOPERATIVE DIAGNOSES: 1. Degenerative joint disease of right knee. 2. Right knee fat pad impingement. POSTOPERATIVE DIAGNOSES: 1. Degenerative joint disease of right knee. 2. Right knee fat pad impingement. PROCEDURE: Right knee arthroscopy with chondroplasty of the medial and lateral femoral condyle and trochlear groove. ASSOCIATE DIRECTOR OF SALES: Chiqui Bennett RN. ANESTHESIA: General. ESTIMATED BLOOD LOSS: 5 mL. TOURNIQUET TIME: 20 minutes. COMPLICATIONS: None. DVT PROPHYLAXIS: Not indicated. IMPLANTS USED: None. BRIEF HISTORY: Calista is a 42-year-old female, who has had complaint of progressive right knee pain. She had failed conservative treatment. Due to her lack of response to conservative treatment, I did recommend surgical intervention. The risks and goals of the procedure were discussed with the patient and were documented preoperatively. She agreed to proceed. DESCRIPTION OF PROCEDURE: The patient was properly identified and brought to the operating room. She was transferred from the OR cart and placed on the operating table in supine position. General anesthesia was administered. After adequate anesthesia was obtained, a well-padded tourniquet was applied to the right lower extremity. The right lower extremity was then prepped in standard fashion using ChloraPrep solution. It was then sterilely draped. A time-out was performed to ensure correct site and procedure. Preoperative antibiotics were given. The surgical site had been marked preoperatively. An Esmarch was used to exsanguinate the right lower extremity and the tourniquet was inflated to 250 mmHg. A lateral portal arthrotomy was established. Blunt trocar and cannula were introduced into the suprapatellar space. Camera, inflow, and outflow were assembled. No significant synovitis was noted. The patellofemoral joint was visualized. The patella appeared to track centrally. 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 I then extended down the lateral and medial gutter. No loose bodies were identified. However, there was evidence of osteophyte formation along the medial and lateral femoral condyle. I then entered the medial compartment. A medial portal arthrotomy was established. A blunt probe was inserted. The meniscus was probed and found to be stable. No tearing was noted. The medial femoral condyle showed an area of degenerative changes measuring approximately 10 mm x 20 mm along the weightbearing portion of the medial femoral condyle. Grade 1 chondromalacia was noted along the medial tibial plateau. I then entered the notch. Both the ACL and PCL were visualized and probed and found to be intact. I then entered the lateral compartment. Again, evident was a large area of grade 4 chondromalacia along the weightbearing portion of the lateral femoral condyle. This did have extensive loose flaps of cartilage, which were resected with a shaver and a ring curette. At the conclusion, the defect measured approximately 20 mm x 15 mm and was located directly on the weightbearing surface of the lateral femoral condyle. Grade 2 chondromalacia was noted diffusely along the lateral tibial plateau. The meniscus did not show any signs of tearing or instability. I then re-entered the patellofemoral joint. Multiple areas of loose cartilage were noted along the trochlear groove. This was resected with the shaver and ring [place] curette. The cartilage was probed along the patella and trochlear groove and showed findings consistent with diffuse grade 4 chondromalacia. A portion of the fat pad was also excised due to the MRI findings of fat pad impingement. There appeared to be some impingement of the fat pad with flexion and extension of the knee. The instruments were then removed from the knee. The portal sites were closed with 3-0 nylon. 1% Lidocaine was injected along the portal tracts. Xeroform gauze was placed over the wound and a bulky dressing was applied. The tourniquet was then deflated. She was awakened from her anesthetic and transferred back to the operating room cart. She was brought to recovery room in stable condition. All needle and sponge counts were correct. FATUMA / CASSIE /[id number]
--- NOTE | 2017-11-05 17:17 | PCM.POSTAN ---
POST ANESTHESIA ASSESSMENT - MENTAL STATUS Mental Status: Alert, Oriented - RESPIRATORY Respiratory Status: Respiratory Rate WNL, Airway Patent, O2 Saturation Stable - CARDIOVASCULAR CV Status: Pulse Rate WNL, Blood Pressure Stable - GASTROINTESTINAL GI Status: No Symptoms - POST OP HYDRATION Hydration Status: Adequate & Stable
[2017-11-05] MEDS: Haloperidol Lactate 5 MG/ML SDV IM ONE ×2 (17:24→17:44)
[2017-11-05 18:06] VITALS: BP 106/63
--- NOTE | 2017-11-05 18:35 | PCM48HPAN ---
Post Anesthesia Note - EVALUATION WITHIN 48HRS OF ANESTHETIC Vital Signs in Normal Range: Yes Patient Participated in Evaluation: Yes Respiratory Function Stable: Yes Airway Patent: Yes Cardiovascular Function Stable: Yes Hydration Status Stable: Yes Pain Control Satisfactory: Yes Nausea and Vomiting Control Satisfactory: Yes Mental Status Recovered: Yes Resp Rate: 14
== END 2017-11-05 18:00 | disposition home or self-care (01) ==
LOC: MW.SDS 12:26
PROVIDERS: ATTEND Orthopaedic Surgery
DX: M17.11 Unilateral primary osteoarthritis, right knee (principal); M25.861 Other specified joint disorders, right knee; M22.41 Chondromalacia patellae, right knee; M25.461 Effusion, right knee; M71.21 Synovial cyst of popliteal space [Baker], right knee; K29.50 Unspecified chronic gastritis without bleeding; K21.9 Gastro-esophageal reflux disease without esophagitis; E03.9 Hypothyroidism, unspecified; G47.00 Insomnia, unspecified; D50.9 Iron deficiency anemia, unspecified; Z79.899 Other long term (current) drug therapy; Z88.5 Allergy status to narcotic agent
CPT/HCPCS: 29999; 88304; A9270; J0690; J1100; J1630; J2250; J2405; J3010; J7120; J2704